=== PATIENT | female | born 1960 | race Caucasian/White ===

== ENCOUNTER 2018-09-12 13:56 | Emergency (ER) | payer OTHER ==
[2018-09-12] MEDS: ONDANSETRON (ODT) 4 MG TAB ODT (15:37)
[2018-09-12] MEDS: MECLIZINE 12.5 MG TAB PO (15:37)
== END 2018-09-12 17:43 | disposition home or self-care (01) ==
LOC: FTE 17:43
DX: H81.12 Benign paroxysmal vertigo, left ear (principal); R11.10 Vomiting, unspecified
CPT/HCPCS: 99283; Z7502